=== PATIENT | male | born 1960 | race American Indian/Alaskan Native ===

== ENCOUNTER 2017-04-06 07:19 | Outpatient (CLI) | payer BC ==
--- NOTE | 2017-04-07 09:31 | Magnetic Resonance Report ---
MRI LEFT KNEE WITHOUT CONTRAST: 04/06/17 CLINICAL: Left knee pain. TECHNIQUE: Sagittal proton density fat sat and T2, coronal T2 fat sat and proton density and axial gradient T2*sequences on a 1.5 Trinity magnet. FINDINGS: The cruciate ligaments and collateral ligaments are intact. The medial meniscus is intact. Hyperintense intrameniscal signal of the posterior horn of the lateral meniscus is identified only on the sagittal sequences and does not extend to an articular surface. The lateral meniscus is otherwise intact. Normal marrow signal with no bone contusion or fracture. The femoral cartilage is intact. Mild irregularity of the patellar cartilage and otherwise intact patella. Normal patellar tendon and retinaculum. There is a small joint effusion. No popliteal cyst. IMPRESSION: 1. Small knee joint effusion. 2. No meniscal or ligamentous injury. 3. Mild chondromalacia patellae
== END 2017-04-06 07:20 | disposition home or self-care (01) ==
LOC: MRI 07:19
PROVIDERS: ATTEND Family Medicine
DX: M22.42 Chondromalacia patellae, left knee (principal); M25.462 Effusion, left knee; I10 Essential (primary) hypertension
CPT/HCPCS: 73721

== ENCOUNTER 2022-05-04 13:13 | Emergency (ER) | payer OTHER ==
[2022-05-04 13:41] VITALS: BP 160/84
[2022-05-04 15:20] LABS: Amphetamine Screen,Urine Negative; Benzodiazepines Screen,Urine Negative; Cannabinoid Screen,Urine Negative; Cocaine Screen,Urine Negative; Methadone Screen,Urine Negative; Opiate Screen,Urine Negative
[2022-05-04] MEDS ORDERED: CYCLOBENZAPRINE 10 MG TAB PO ONE (21:46)
[2022-05-04] MEDS ORDERED: KETOROLAC 10 MG TAB PO ONE (21:46)
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
== END 2022-05-04 22:23 | disposition home or self-care (01) ==
LOC: ED 13:13
DX: M54.2 Cervicalgia (principal); M54.9 Dorsalgia, unspecified; V89.2XXA Person injured in unspecified motor-vehicle accident, traffic, initial encounter; Y93.89 Activity, other specified; Y92.89 Other specified places as the place of occurrence of the external cause; Y99.8 Other external cause status
CPT/HCPCS: 80307; 99283